=== PATIENT | male | born 1955 | race Caucasian/White ===

== ENCOUNTER → 2018-03-01 | Outpatient (CLI) | payer MEDICARE ==
--- NOTE | 2018-03-10 23:48 | CON ---
[address] [address] CONSULTATION Name: BONY TINEO Room: [facility]ANA Yip#: [id number] Admission: 03/01/18 Attend Phys: Deonte Zepeda MD Discharge: Date of : 51 Report #: [id number] THIS REPORT FOR: //name// CC: Deonte Ramos DATE OF SERVICE: 03/01/2018 RADIATION ONCOLOGY CONSULT NOTE REFERRING PHYSICIANS: Dr. Kelly Wan, Dr. Kidd and Dr. Ramos. [facility] phone is [phone]. 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 HISTORY OF PRESENT ILLNESS: The patient is a 62-year-old gentleman who had increasing shortness of breath over the last 3 months. He then had a chest x-ray that was abnormal, and he had a CT scan of the chest, which revealed a right upper lobe lesion with postobstructive pneumonia. The patient underwent a biopsy of the lesion involving the upper lobe of the right lung on 02/01/2018, which revealed a neuroendocrine tumor, and the patient also underwent a PET scan on 01/25/2018, which revealed a right upper lobe lung mass with also a lesion involving the left ischial fossa. The left ischial fossa lesion was biopsied on 02/12/2018 and the pathology revealed a poorly differentiated malignancy favoring small cell carcinoma of pulmonary origin. 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 The patient denied having any significant headaches or nausea or change in his visual acuity. PAST MEDICAL AND PAST SURGICAL HISTORY: Includes hypertension, gastroesophageal reflux disease, history of deep venous thrombosis. He has a defibrillator placed. He has chronic obstructive pulmonary disease. He had a cardiomyopathy in 2008. MEDICATIONS: Include baby aspirin, amlodipine and bisoprolol. ALLERGIES: He has no known drug allergies. HE FELT LIKE HE GOT SHORT OF BREATH WITH METOPROLOL AND THAT HE HAD A COUGH WITH FABIANO INHIBITORS. FAMILY HISTORY: [place] [address] CONSULTATION Name: BONY TINEO Room: [facility]#: [id number] Admission: 03/01/18 Attend Phys: Deonte Zepeda MD Discharge: Date of : 51 Report #: [id number] SOCIAL HISTORY: He is retired. He is a disabled otr refrigerated cdl truck driver. He is . He has 2 sons and a daughter. Ethanol: he drinks alcohol on a daily basis, about 2-3 screw drivers per day. Cigarettes: He quit smoking in 1998, he smoked 1-2 packs per day for 30 years. REVIEW OF SYSTEMS: GENERAL: He denied having fevers or chills. SKIN: He denied having color changes or itching. LYMPH NODES: He denied having enlarged or painful glands. ENDOCRINE: He may have had slight decreased appetite. HEMATOLOGY/IMMUNOLOGY: He was treated for deep venous thrombosis in 2012. MUSCULOSKELETAL: He denied having arthritis or painful swollen joints. HEAD AND NECK: He denied having any significant headaches. RESPIRATORY: He had a little bit of wheezing, but that was improved after his first cycle of chemotherapy, which he just recently completed. He indicated that today, he completed his first cycle of chemotherapy. CARDIOVASCULAR: He has a defibrillator in place. He denied having any palpitations. GASTROINTESTINAL: He denied having any nausea. NEUROLOGIC: He denied having any focal weakness. PHYSICAL EXAMINATION: VITAL SIGNS: Height 5 feet 8-1/2 inches, weight 107 pounds, blood pressure 133/79, pulse 67, oxygen saturation 94%, respirations 20. GENERAL: The patient was alert and oriented. EYES: Pupils were equal, round and reactive to light and accommodation. Extraocular movements were intact. HEAD, EARS, NOSE AND THROAT: Mouth had no visible lesions. HEART: Had a regular rate and rhythm without murmur. LUNGS: were clear to auscultation with slightly decreased breath sounds bilaterally. ABDOMEN: Nontender. Spleen is not palpable. Liver was at the costal margin. EXTREMITIES: Had no clubbing, cyanosis or edema. NEUROLOGIC: Cranial nerves II to XII were intact. Sensation intact. He has 5/5 strength in his extremities. LABORATORY DATA: Sodium 124, potassium 4.5, BUN 9, creatinine 0.89. AST 22, ALT 21. Hemoglobin 16.1, white blood cell count 6.8. ASSESSMENT AND PLAN: He has brain metastasis. He was offered palliative radiation therapy to the brain. The risks, benefits and logistics of palliative radiation therapy to the brain were explained to the patient in detail. He gave his witnessed, informed consent to proceed with palliative radiation therapy to the brain. He was given [place] [address] CONSULTATION Name: BONY TINEO Room: [facility]#: [id number] Admission: 03/01/18 Attend Phys: Deonte Zepeda MD Discharge: Date of : 51 Report #: [id number] Thank you for this consult. <ELECTRONICALLY SIGNED> By: Deonte Zepeda MD 03/10/18 [id number] Zepeda MD /nt
== END ==
LOC: M.RTH 04:32
DX: Z08 Encounter for follow-up examination after completed treatment for malignant neoplasm (principal); C34.90 Malignant neoplasm of unspecified part of unspecified bronchus or lung; C79.31 Secondary malignant neoplasm of brain